=== PATIENT | male | born 1985 | race Hispanic/Latino ===

== ENCOUNTER 2024-10-06 18:49 | Emergency (ER) | payer SELFPAY ==
[2024-10-06 18:59] VITALS: BP 130/73
[2024-10-06 19:12] LABS: Glucose - Point of Care 347 mg/dl (70-99)
[2024-10-06 19:25] LABS: % Basophils 0.5 % (0-2); % Immature Granulocytes 0.5 % (0-0.5); % Lymphocytes 28.5 % (20.5-51.1); % Neutrophils 58.5 % (42.2-75.2); Absolute Eosinophils 0.1 10^3/uL (0-0.7); Absolute Lymphocytes 1.7 10^3/uL (1.2-3.4); Absolute Monocytes 0.6 10^3/uL (0.1-0.6); Absolute Neutrophils 3.5 10^3/uL (1.4-6.5); Hematocrit 40.6 % (39.0-52.0); Hemoglobin 14.3 g/dL (13.0-18.0); Mean Corp Hgb Conc. 35.2 g/dL (33.0-37.0); Mean Corpuscular Hgb 31.4 pg (27.0-31.0); Mean Corpuscular Volume 89.2 fL (80.0-94.0); Mean Platelet Volume 9.8 fL (7.4-10.4); Nucleated Red Blood Cells % 0 % (-); Platelet Count 226 10^3/uL (130-400); Red Blood Cell Count 4.55 10^6/uL (4.70-6.10); Red Cell Dist. Width 12.4 % (11.5-14.5)
[2024-10-06 19:45] LABS: ALT (SGPT) 128 U/L (0-50); AST (SGOT) 67 U/L (17-59); Albumin 4.4 g/dl (3.5-5.0); Alkaline Phosphatase 80 U/L (38-126); Blood Urea Nitrogen 16 mg/dl (9-20); Calcium 8.8 mg/dl (8.4-10.2); Carbon Dioxide 25 mmol/L (22-30); Chloride 101 mmol/L (98-107); Glucose 357 mg/dl (70-99); Potassium 4.3 mmol/L (3.5-5.1); Sodium 139 mmol/L (135-145); Total Bilirubin 0.6 mg/dl (0.2-1.3); Total Protein 7.1 g/dl (6.3-8.2); eGFR > 60.00
[2024-10-06 19:46] LABS: Lipase 192 U/L (23-300)
[2024-10-06 19:52] LABS: B-Hydroxybutyrate 0.12 mmol/L (0.02-0.27)
[2024-10-06 20:31] VITALS: BP 123/69
[2024-10-06 21:00] VITALS: BP 118/67
--- NOTE | 2024-10-06 21:06 | ED.GENMED ---
History of Present Illness
General
Chief Complaint: Blood Sugar Problem
Time Seen by Provider: 10/06/24 21:06
History of Present Illness
History of Present Illness:
TIME OF INITIAL ENCOUNTER: 9:10 PM
HPI: Patient states that he has had high blood sugars including sugars as high as 500s when he checked his blood sugar at home several months ago. He states he does have a glucometer at home but rarely uses it. He is not taking any medication for
diabetes. More recently he has had some vision changes and some paresthesias to the distal extremities as well as some discomfort in the back of the head. He suspects that his blood sugar is high.
EXAM:
GENERAL: Well appearing in no distress
HEENT: Moist oral mucosa
CARDIOVASCULAR: No murmurs, normal heart rate, regular rhythm, No chest wall tenderness
PULMONARY: No respiratory distress, breath sounds are clear and equal
ABDOMEN: Soft with no peritoneal signs, no tenderness
NEUROLOGIC: Excellent strength all extremities, no coordination deficits
PSYCHIATRIC: Appropriate mental status, normal insight and judgement
EXTREMITIES: Nontender, no edema, moves all extremities equally
SKIN: No rash, no lesions
NUMBER AND COMPLEXITY OF PROBLEMS ADDRESSED AT THE ENCOUNTER
� Chronic conditions affecting care: Questionable history of diabetes
� Acute Exacerbation and/or Progression of Chronic Illness: This is an acute problem
� Differential Diagnosis includes: Diabetes, DKA, hyperglycemia, electrolyte abnormality
AMOUNT AND/OR COMPLEXITY OF DATA TO BE REVIEWED AND ANALYZED
� I performed an independent evaluation of and my interpretation is:
EKG:
CT:
X-rays:
Laboratory Studies: CBC unremarkable, glucose 357, bedside glucose initially was 347, acetone 0.12, bicarb normal, chemistries otherwise unremarkable
Other:
� Review of other/old records: No old records available for review in [facility]
� Clinical information was obtained by an independent historian: I spoke to family member at bedside
� Prescriptions/Medications Considered but not given:
� Further testing considered but not performed: No indication for any imaging
RISK OF COMPLICATIONS AND/OR MORBIDITY OR MORTALITY OF PATIENT MANAGEMENT
� Social determinants of health affecting care: The patient does not have insurance states he does have a glucometer at home but does not use it
� Discussion with other providers:
� Escalation of care including admission/observation vs risk of discharge considered: The patient is not in DKA and is very well-appearing with relatively unremarkable vital signs. However blood sugar is markedly elevated
consistent with diabetes. We are giving IV fluids then insulin and will start metformin and he is to follow-up with me as outpatient. I am given him the contact information for family practice and [facility]
ANY OTHER UPDATES:
10:55 PM on reassessment, blood sugar now down to 176 after liter of fluid and 6 units of insulin. Will start on metformin. Very well-appearing on reassessment.
Phy Exam
Physical Exam
Physical Exam:
See HPI
Course
Orders/Labs/Results
Orders:
Orders
10/06/24 19:12
Alcohol Urgent
B-Hydroxybutyrate Urgent
Complete Blood Count/With Diff Urgent
Comprehensive Metabolic Panel Urgent
Lipase Urgent
10/06/24 21:07
Add On- LAB Urgent
Tests Added?: a1c
10/06/24 21:08
0.9% Sodium Chloride 1000 ml [Nss] 1,000 ml IV BOLUS
10/06/24 21:21
Insulin Human Regular [Novolin R] 6 units IV NOW STA
10/06/24 22:39
Bedside Glucose- Treatment ONCE
Abnormal Lab Results
10/06/24 10/06/24 10/06/24
19:11 19:12 22:48
RBC 4.55 L 10^6/uL
(4.70-6.10)
MCH 31.4 H pg
(27.0-31.0)
Monocytes % 10.0 H %
(1.7-9.3)
Glucose 357 H mg/dl
(70-99)
AST 67 H U/L
(17-59)
ALT 128 H U/L
(0-50)
POC Glucose 347 H mg/dl 176 H mg/dl
(70-99) (70-99)
10/06/24 19:12
10/06/24 19:12
Vital Signs
Initial and Last Documented VS:
Initial Vital Signs
Temp Pulse Resp BP Pulse Ox
36.8 C 71 18 130/73 97
10/06/24 18:59 10/06/24 18:59 10/06/24 18:59 10/06/24 18:59 10/06/24 18:59
Last Documented Vital Signs
Temp Pulse Resp BP Pulse Ox
36.8 C 64 28 100/54 94
10/06/24 18:59 10/06/24 22:45 10/06/24 22:45 10/06/24 22:00 10/06/24 22:30
*Critical Care Note
Total Time (30-74mins, 75-104mins- exclusive of procedures): Not Applicable
ED Attending Note
-
Portions of this chart may have been created with voice recognition software.� Occasional wrong word or��sound alike� substitutions may have occurred due to the inherent limitations of voice recognition software.
Discharge Plan
Departure
Patient Disposition: Home (Routine Discharge)
Date of Disposition: 10/06/24
Time of Disposition: 22:56
Patient with high blood pressure during this ER visit?: Yes
Discharge Problem:
Diabetes
Instructions: The ABCs of diabetes, Diabetes and diet
Prescriptions:
New
metformin 500 mg tablet
500 mg PO BID Qty: 60 0RF
Referrals:
[facility] [Provider Group] - Next open appointment
[facility] [Outside] - Next open appointment
Activity Restrictions/Additional Instructions:
I have given the contact information for the [facility] as well as the family residency program�I am hoping that 1 of these offices can see you for follow-up. I am starting you on metformin which should help control the blood sugars
initially. Return here if worse or other concerns. You should check your blood sugars before each meal and in the evenings and write these numbers down.
Interventions
Interventions:
*Risk Screen - Suicide Last Done: 10/06/24 20:33
*General Assessment Last Done: 10/06/24 20:33
*Neglect/Abuse Screening Last Done: 10/06/24 20:33
*ED COVID-19 Vaccine History Last Done: 10/06/24 20:33
ED- Neurological Assessment Last Done: 10/06/24 20:33
Discharge Date and Time
Print Language: BHUTANESE
[2024-10-06] MEDS: NSS 1000 IV (21:16)
[2024-10-06] MEDS: NOVOLIN R 6 UNITS IV (21:34)
[2024-10-06 21:45] LABS: Alcohol None Detected
[2024-10-06 22:00] VITALS: BP 100/54
[2024-10-06 22:49] LABS: Glucose - Point of Care 176 mg/dl (70-99)
[2024-10-06 23:00] VITALS: BP 96/49
[2024-10-07 00:04] VITALS: BP 119/56
[2024-10-07 00:17] LABS: Glucose - Point of Care 180 mg/dl (70-99)
== END 2024-10-07 00:10 | disposition home or self-care (01) ==
LOC: EMR 18:49
PROVIDERS: Emergency Medicine; EMERGENCY PHYSICIAN Emergency Medicine
DX: E11.65 Type 2 diabetes mellitus with hyperglycemia (principal); Z59.71 Insufficient health insurance coverage
CPT/HCPCS: 96374; 99284; 80053; 82010; 82077; 82962; 83690; 85025

== ENCOUNTER 2024-11-08 01:36 | Inpatient (IN) | payer OTHER, SELFPAY ==
[2024-11-07 22:19] VITALS: BP 130/88
[2024-11-07 22:58] LABS: % Basophils 0.6 % (0-2); % Eosinophils 1.1 % (0-6); % Monocytes 7.6 % (1.7-9.3); % Neutrophils 61.7 % (42.2-75.2); Absolute Eosinophils 0.1 10^3/uL (0-0.7); Absolute Immature Granulocytes 0.1 10^3/uL (0-0.05); Absolute Lymphocytes 1.8 10^3/uL (1.2-3.4); Absolute Monocytes 0.5 10^3/uL (0.1-0.6); Absolute Neutrophils 3.9 10^3/uL (1.4-6.5); Hematocrit 45.8 % (39.0-52.0); Hemoglobin 16.4 g/dL (13.0-18.0); Mean Corp Hgb Conc. 35.8 g/dL (33.0-37.0); Mean Corpuscular Hgb 32.1 pg (27.0-31.0); Mean Corpuscular Volume 89.6 fL (80.0-94.0); Mean Platelet Volume 10.5 fL (7.4-10.4); Nucleated Red Blood Cells % 0 % (-); Platelet Count 227 10^3/uL (130-400); Red Blood Cell Count 5.11 10^6/uL (4.70-6.10); Red Cell Dist. Width 12.3 % (11.5-14.5); White Blood Cell Count 6.3 10^3/uL (4.8-10.8)
[2024-11-07 23:18] LABS: ALT (SGPT) 49 U/L (0-50); AST (SGOT) 25 U/L (17-59); Albumin 5.3 g/dl (3.5-5.0); Alkaline Phosphatase 130 U/L (38-126); Blood Urea Nitrogen 13 mg/dl (9-20); Calcium 9.3 mg/dl (8.4-10.2); Carbon Dioxide 13 mmol/L (22-30); Chloride 100 mmol/L (98-107); Glucose 387 mg/dl (70-99); Potassium 4.9 mmol/L (3.5-5.1); Sodium 136 mmol/L (135-145); Total Bilirubin 0.9 mg/dl (0.2-1.3); Total Protein 8.6 g/dl (6.3-8.2); eGFR > 60.00
[2024-11-07 23:34] LABS: B-Hydroxybutyrate 6.66 mmol/L (0.02-0.27)
[2024-11-08] VITALS (19 sets, daily range): BP systolic 97–137; BP diastolic 58–89; BMI 34.9; BMI 33.8
[2024-11-08] MEDS: NSS 1000 IV (00:39)
--- NOTE | 2024-11-08 00:41 | ED.GENMED ---
History of Present Illness
General
Chief Complaint: Blood Sugar Problem
Source: patient
Exam Limitations: none
Time Seen by Provider: 11/08/24 00:19
Nursing documentation reviewed up to this point in time: agreed with
History of Present Illness
History of Present Illness:
Patient is a 39-year-old man with a past medical history of edc-vpptthl-cgrksqoqn diabetes. Patient reports he was diagnosed with diabetes about 8 months ago. Patient was prescribed metformin, however, he states he has not taken it in about 20
days because he does not like the way it makes him feel. Patient reports he was trying to control his sugar by controlling what he is eating. Patient reports that for the last few days, his sugars been above 400. He complains of feeling
dehydrated with a dry mouth and mild headache. He denies fever, chest pain, shortness of breath, and abdominal pain.
Past History
Past History
ED Past Medical History: NIDDM
ED Past Surgical History: Other
Social History
Tobacco: Non-smoker
Alcohol: Occasional
Drug: None
Personal:
Living: with family
Employment: Other
Family History
Family History: Other
Review of Systems
Review of Systems
Allergies reviewed?: Yes
All Other Systems: ROS reviewed and negative except as documented in HPI and ROS
Constitutional: Reports no symptoms
EENT: Reports other (Very dry mouth)
Respiratory: Reports no symptoms
Cardiac: Reports no symptoms
ABD/GI: Reports no symptoms
: Reports no symptoms
Musculoskeletal: Reports no symptoms
Skin: Reports no symptoms
Neurological: Reports headache
Endocrine: Reports no symptoms
Hematologic/Lymphatic: Reports no symptoms
Psychiatric: Reports no symptoms
Phy Exam
Physical Exam
Physical Exam:
Physical Exam
General: no apparent distress, not acutely ill
Neck: supple. Dry mucous membrane
Heart: s1/s2 regular rate and rhythm, no murmur. equal radial pulses.
Lungs: no acute respiratory distress. clear bilaterally
Abdomen: normal bowel sounds. not tender. no CVAT
Neuro: alert and oriented. no focal neurological deficits
Skin: no rash
Psychiatric: well kept. interactive and cooperative
Extremities: no edema. no calf tenderness. negative homans. good distal pulses
Course
Orders/Labs/Results
Orders:
Orders
11/07/24 22:34
B-Hydroxybutyrate Urgent
Complete Blood Count/With Diff Urgent
Comprehensive Metabolic Panel Urgent
11/08/24 00:34
0.9% Sodium Chloride 1000 ml [Nss] 1,000 ml IV BOLUS
11/08/24 00:45
Reg Insulin 100 Units/100 ml [Novolin R Insulin Infusion] 100 units in 100 ml IV ORDERED RATE
Abnormal Lab Results
11/07/24
22:34
MCH 32.1 H pg
(27.0-31.0)
MPV 10.5 H fL
(7.4-10.4)
Abs Immat Gran (auto) 0.1 H 10^3/uL
(0-0.05)
Immature Gran % 1.0 H %
(0-0.5)
Carbon Dioxide 13 L* mmol/L
(22-30)
Glucose 387 H mg/dl
(70-99)
Alkaline Phosphatase 130 H U/L
(38-126)
Total Protein 8.6 H g/dl
(6.3-8.2)
Albumin 5.3 H g/dl
(3.5-5.0)
B-Hydroxybutyrate 6.66 H mmol/L
(0.02-0.27)
11/07/24 22:34
11/07/24 22:34
Vital Signs
Initial and Last Documented VS:
Initial Vital Signs
Temp Pulse Resp BP Pulse Ox
98.1 F 80 18 130/88 96
11/07/24 22:19 11/07/24 22:19 11/07/24 22:19 11/07/24 22:19 11/07/24 22:19
Last Documented Vital Signs
Temp Pulse Resp BP Pulse Ox
98.9 F 88 18 130/88 97
11/08/24 00:31 11/08/24 00:31 11/08/24 00:31 11/07/24 22:19 11/08/24 00:31
MDM/Problems Addressed
Differential Diagnosis Includes:
DKA, hyperglycemia without DKA, hyponatremia
MDM/Problems Addressed:
Patient presents with complaints of hyperglycemia and feelings of acute dehydration
Chronic conditions affecting care: DM
Acute Exacerbation and/or Progression of Chronic Illness: DM
*Pulse Oximetry
Patient hypoxic: no
*EKG
Interpreted by ED Provider?: NA
*Program Director/Air Personality Interpretation
Rate: normal
Interpretation: normal
Rhythm: sinus
*Critical Care Note
Total Time (30-74mins, 75-104mins- exclusive of procedures): 35 minutes of critical ca
comment:
30 minutes of critical care with the patient including frequent reassessments of his heart rate, reviewing his blood work, and counseling him about the importance of taking his medication for his diabetes
Data Reviewed
Review of Other/Old Records Reveals: Labs (Lab from 10/06/2024 showed blood glucose in the 350s)
Source: patient and spouse
Patient Management
Social determinants of health affecting care: Living situation and Strong social support
ED Attending Note
-
Portions of this chart may have been created with voice recognition software.� Occasional wrong word or��sound alike� substitutions may have occurred due to the inherent limitations of voice recognition software.
Discharge Plan
Departure
Patient Disposition: Admit
Date of Disposition: 11/08/24
Time of Disposition: 00:43
Presentation/result/management discussed w/ accepting MD/DO: Hospitalist
Patient with high blood pressure during this ER visit?: Yes
Condition: Fair
Discharge Problem:
Diabetic ketoacidosis
Prescriptions:
No Action
No Current Medications
0
Referrals:
NONE,* [Family Provider] -
Interventions
Interventions:
*Risk Screen - Suicide Last Done: 11/08/24 00:32
*Neglect/Abuse Screening Last Done: 11/08/24 00:32
ED- Fall Risk Assessment Last Done: 11/08/24 00:32
*ED COVID-19 Vaccine History Last Done: 11/08/24 00:32
Discharge Date and Time
Print Language: AMERICAN
--- NOTE | 2024-11-08 01:24 | HPS.HSE ---
Family Physician
-
Family Physician: * NONE
Chief Complaint
-
Elevated blood glucose
History of Present Illness
Patient is a 39-year-old male with past medical history of a recent diagnosis of diabetes who comes to the emergency department with elevated glucose, polyuria polydipsia nausea and vomiting.
Patient was diagnosed about 8 months ago and placed himself on diet to help control his diabetes. He was seen in the ED for elevated blood glucose about a month ago. At that time patient was started on metformin. He said he took the metformin for
a few days but developed chest discomfort nausea and shortness of breath. He decided to stop taking the metformin about 3 weeks ago.
He now has polyuria polydipsia again. He reports nausea vomiting today. He denies having any fevers or chills. He denies any other urinary symptoms. He denies abdominal pain.
In the emergency department he was afebrile hemodynamically stable. CBC was unremarkable. Chemistries notable for a bicarb of 13, anion gap of 23, BUN and creatinine. Beta-hydroxybutyrate was elevated at 6.6. Blood glucose was 387.
Medical History
Past Medical History
Past Medical History: Reports NIDDM
Past Surgical History: Reports None
Social History
Tobacco: Non-smoker
Alcohol: Occasional
Drug: None
Personal:
Living: With Family
Employment: Employed
Family History
Family History: Not pertinent
Allergies / Home Medications
Allergies reflects when Allergies were last updated in [employer].
Home Medications with original date entered in [employer]
Allergy/Medication List:
Allergies
Allergy/AdvReac Type Severity Reaction Status Date / Time
No Known Allergies Allergy Unverified 10/06/24 19:01
Home Medications
No Meds [No Current Medications] 11/08/24
Review of Systems
-
History Source: Patient
Constitutional: Reports No Symptoms
EENT: Reports No Symptoms
Respiratory: Reports No Symptoms
Cardiac: Reports No Symptoms
Abdomen/GI: Reports Nausea and Vomiting
Musculoskeletal: Reports No Symptoms
Skin: Reports No Symptoms
Neurological: Reports No Symptoms
Endocrine: Reports Polyuria and Polydipsia
Hematologic/Lymphatic: Reports No Symptoms
Psych: Reports No Symptoms
Physical Exam
Vital Signs
Vital Signs
Temp Pulse Resp BP Pulse Ox
98.9 F 88 18 130/88 97
11/08/24 00:31 11/08/24 00:31 11/08/24 00:31 11/07/24 22:19 11/08/24 00:31
Physical Exam
General: No Apparent Distress
HEENT: NormoCephalic, Anicteric, Atraumatic and PERRLA
Respiratory: Clear
Cardiac: S1/S2 and Regular Rhythm
Breast: Deferred by me
GI: Soft, Non Tender, Non Distended and Normal Bowel Sounds
Rectal: Deferred by Provider
Genito-urinary: Deferred by me
Musculoskeletal: No Clubbing, No Cyanosis and No Edema
Neuro: AO x 3
Hematologic/Lymphatic: No Lymphadenopathy
Psych: Calm
Laboratory Results
-
11/07/24 22:34
11/07/24 22:34
Laboratory Results
Total Bilirubin 0.9 mg/dl (0.2-1.3) 11/07/24 22:34
AST 25 U/L (17-59) 11/07/24 22:34
ALT 49 U/L (0-50) 11/07/24 22:34
Alkaline Phosphatase 130 U/L (38-126) H 11/07/24 22:34
Data Reviewed
-
Lab Data: Labs Reviewed by me
Old Records: Reviewed
Impression/Plan
-
IMPRESSION:
This is a 39-year-old with diagnosis of mpo-kmzmwmd-rbwtndata diabetes recently who comes in in DKA. This is secondary to not being on any medications for 3 weeks after being started on metformin with subsequent nausea, chest pain and shortness of
breath. He appears moderately dehydrated and in moderate DKA. No signs of DKA triggered by infection or acute ischemia.
PLAN:
DKA -
- admit to icu
- aggressive hydration, 1 L NS bolus in ED
- DKA protocol started with appropriate fluids and insulin gtt rate
- FSG q 1 hour, chemistries q 4 hours
- antiemetics and pain control
- a1c in am
- no insurance and intolerant of metformin. Consider glimepiride with a gliptin if possible when ready to d/c
- diet can start in am if no vomiting
DVT PPX - lovenox
Code status - full code
--- NOTE | 2024-11-08 01:40 | EDRN ---
Pt says his blood sugar is high. Pt says it was 453 yesterday around [id number]. Pt says he has been diabetic for 8 months. Pt was put on oral medications for diabetes and says he stopped taking them after 20 days because he could not breathe. Pt
talked to the pharmacist who reportedly told the pt they would have to call the doctor. This was 15 days ago and pt did not hear back from pharmacy. Pt did not call doctor or pharmacy to inquire about the medications he stopped taking. Pt noted
his mouth was dry yesterday and he did not feel good which prompted visit to ED. No n/v, cp, sob, urinary symptoms, diarrhea/constipation. Pt notes abd pain. Pt's main complaint is dry mouth.
--- NOTE | 2024-11-08 01:52 | EDRN ---
Report called to Primitivo in ICU
--- NOTE | 2024-11-08 01:53 | EDRN ---
ICU has insulin drip, will start in ICU.
[2024-11-08] MEDS: NOVOLIN R INSULIN INFUSION 100 IV (02:36)
[2024-11-08 02:51] LABS: Glucose - Point of Care 318 mg/dl (70-99)
[2024-11-08] MEDS: NSS with KCL 20 MEQ 1000 IV (03:18)
[2024-11-08 03:28] LABS: Glucose - Point of Care 278 mg/dl (70-99)
[2024-11-08 03:32] LABS: Hematocrit 40.3 % (39.0-52.0); Hemoglobin 14.7 g/dL (13.0-18.0); Mean Corp Hgb Conc. 36.5 g/dL (33.0-37.0); Mean Corpuscular Hgb 32.2 pg (27.0-31.0); Mean Corpuscular Volume 88.4 fL (80.0-94.0); Mean Platelet Volume 10.3 fL (7.4-10.4); Platelet Count 208 10^3/uL (130-400); Red Blood Cell Count 4.56 10^6/uL (4.70-6.10); Red Cell Dist. Width 12.3 % (11.5-14.5); White Blood Cell Count 5.7 10^3/uL (4.8-10.8)
--- NOTE | 2024-11-08 04:01 | PTCARENOTE ---
Pt admit to ICU from ED around 214. Pt belongings with pt. Pt oriented to unit and hospital. at bedside - she is solely ethiopian speaking. Pt AAOx4, ambulatory. Lungs clear b/l. Pulses palpable. RA SpO2 96%. Pt speaks cambodian but ethiopian is
primary language. Labs drawn, insulin gtt and fluids initiated. IV placed.
[2024-11-08 04:13] LABS: Blood Urea Nitrogen 10 mg/dl (9-20); Calcium 8.4 mg/dl (8.4-10.2); Carbon Dioxide 8 mmol/L (22-30); Chloride 107 mmol/L (98-107); Estimated Creatinine Clearance > 125 ml/min; Glucose 283 mg/dl (70-99); Potassium 3.6 mmol/L (3.5-5.1); Sodium 137 mmol/L (135-145); eGFR > 60.00
[2024-11-08 04:17] LABS: Glucose - Point of Care 235 mg/dl (70-99)
[2024-11-08] MEDS: D5/0.45%NSS with KCL 20 MEQ 1000 IV ×3 (04:35→17:33)
[2024-11-08 05:26] LABS: Glucose - Point of Care 222 mg/dl (70-99)
[2024-11-08 06:17] LABS: Glucose - Point of Care 218 mg/dl (70-99)
[2024-11-08 07:13] LABS: Glucose - Point of Care 216 mg/dl (70-99)
--- NOTE | 2024-11-08 07:18 | W.PN.HOSP.TC ---
Today's Communication/Plan
-
Continue DKA protocol, BMP checks every 4 hours, accuchecks every 1 hour, IV fluids
Assessment / Plan
Assessment / Plan
Physical Exam
General: No Apparent Distress
HEENT: Normocephalic
Respiratory: Clear to Auscultation Bilaterally
Cardiac: S1/S2 and Regular Rhythm
GI: Soft, Non Tender, Non Distended and Normal Bowel Sounds
Musculoskeletal: No Cyanosis and No Edema
Neuro: AAO x 3
Psych: Calm
Assessment/Plan
39-year-old male with a diagnosis of ubx-cgnwdzs-jlbcecmai diabetes mellitus recently who comes in in DKA. This is secondary to not being on any medications for 3 weeks after being started on metformin with subsequent nausea, chest pain and
shortness of breath. He appeared moderately dehydrated and in moderate DKA. No signs of DKA triggered by infection or acute ischemia.
Diabetic Ketoacidosis
Diabetes diagnosis 8 months ago-not treated
- Admitted to ICU
- aggressive hydration, 1 L NS bolus in ED
- Continue DKA protocol started with appropriate fluids and insulin gtt rate
- Glucose accuchecks Q1 hour, BMP q 4 hours
- antiemetics and pain control
- A1c is 10.8%
- no insurance and intolerant of metformin. Consider glimepiride with a gliptin if possible when ready to d/c
- Once blood sugar under 250 transition to D5 and a half with potassium
- Advance to diabetic, carb-controlled diet when nausea resolves and anion gap closes
- Monitor electrolytes and replete as necessary
- Will need Diabetes Nurse Practitioner evaluation
DVT Prophylaxis: Lovenox
Code Status: Full Code
Anticipated Discharge: > 48 hours
Subjective/Interval History
-
Date of Service: November 08, 2024
Patient was seen and examined. He denied any chest pain, dizziness or any other complaints.
Objective Data
-
Labs:
Laboratory Results
11/07/24 11/08/24 11/08/24
22:34 03:14 08:00
WBC 6.3 5.7
Hgb 16.4 14.7
Hct 45.8 40.3
Plt Count 227 208
Sodium 136 137 Pending
Potassium 4.9 3.6 D Pending
Chloride 100 107 Pending
Carbon Dioxide 13 L* 8 L* Pending
BUN 13 10 Pending
Creatinine 0.7 0.5 L Pending
Glucose 387 H 283 H Pending
Calcium 9.3 8.4 Pending
Total Bilirubin 0.9
AST 25
ALT 49
Alkaline Phosphatase 130 H
11/08/24 11/08/24 11/08/24
12:00 16:00 20:00
WBC
Hgb
Hct
Plt Count
Sodium Pending Pending Pending
Potassium Pending Pending Pending
Chloride Pending Pending Pending
Carbon Dioxide Pending Pending Pending
BUN Pending Pending Pending
Creatinine Pending Pending Pending
Glucose Pending Pending Pending
Calcium Pending Pending Pending
Total Bilirubin
AST
ALT
Alkaline Phosphatase
Vital Signs:
Vital Signs
Temp Pulse Resp BP Pulse Ox
98.1 F 85 17 119/83 94
11/08/24 04:00 11/08/24 06:00 11/08/24 06:00 11/08/24 06:00 11/08/24 06:00
I&O
11/07/24 11/08/24 11/09/24
06:59 06:59 06:59
Intake Total 815 / 815
Balance 815 / 815
[2024-11-08 08:10] LABS: Glucose - Point of Care 222 mg/dl (70-99)
--- NOTE | 2024-11-08 08:15 | PTCARENOTE ---
0700 assumed care. pt in bed. Insulin infusing per DKA protocol : Insulin at 3unit or 3ml /hr +D5 0.45NSS infusing
AAO x3 able to communicate without manager animal at this time
SR 90's BP 116/73 MAP 87 RR 26 S1/S2
lungs clear on RA
Abdomen soft non tenders bs present denies nausea no vomitine
Voiding in a bathroom
skin intact . peripheral lines RT and left
[2024-11-08 08:58] LABS: Blood Urea Nitrogen 9 mg/dl (9-20); Calcium 8.1 mg/dl (8.4-10.2); Carbon Dioxide 13 mmol/L (22-30); Chloride 110 mmol/L (98-107); Estimated Creatinine Clearance > 125 ml/min; Glucose 224 mg/dl (70-99); Potassium 3.7 mmol/L (3.5-5.1); Sodium 138 mmol/L (135-145); eGFR > 60.00
[2024-11-08 09:14] LABS: Glucose - Point of Care 221 mg/dl (70-99)
[2024-11-08 10:17] LABS: Glucose - Point of Care 207 mg/dl (70-99)
[2024-11-08 11:20] LABS: Glucose - Point of Care 208 mg/dl (70-99)
[2024-11-08 11:26] LABS: Glycohemoglobin (HgbA1c) 10.8 % (4.0-5.6)
--- NOTE | 2024-11-08 11:29 | CON.INTV ---
Consultation
Consultation Request
Date/Time Consultation Requested: 11/08/2024
Date/Time Consultation Performed: 11/08/2024
Requesting Provider: Dr. Ulloa
Performing Provider: Dr. Bk Cash
Reason for Consultation: DKA
Medical History
-
History of Present Illness:
39-year-old man with past medical history of recent diagnosis of diabetes came to the emergency department for elevated blood glucose, polyuria, polydipsia, nausea and vomiting.
Reports diagnosis of diabetes a month ago. Initially on metformin then on diet.
Stopped taking medications about 8 weeks ago
Found to be on diabetes ketoacidosis. Profound metabolic acidosis
Started on insulin drip and transferred to the critical care unit
Social History
Tobacco: Non-smoker
Alcohol: Occasional
Living: With Family
Employment: Employed
Family History
Family History: Reviewed & Not Pertinent
Allergies / Home Medications
Allergies
Allergy/AdvReac Type Severity Reaction Status Date / Time
No Known Allergies Allergy Unverified 10/06/24 19:01
Home Medications
�Medication �Instructions �Recorded �Confirmed �Last Taken �Type
No Meds [No Current Medications] 11/08/24 11/08/24 Unknown History
Review of Systems
-
History Source: Patient
All other systems: Negative unless noted
Vitals / Labs / Diagnostic Testing
Vital Signs
Temp Pulse Resp BP Pulse Ox
98.2 F 85 17 119/83 94
11/08/24 07:22 11/08/24 06:00 11/08/24 06:00 11/08/24 06:00 11/08/24 06:00
Lab Data
11/08/24 03:14
Diagnostic Testing:
Physical Exam
-
HEENT: Normocephalic
Cardiovascular: S1/S2
Respiratory: Clear and Non-Labored Respirations
GI: Soft and Non Distended
Neurology: Awake, Alert and No Motor Deficits
Skin: Warm
General: Comfortable
Assessment
-
39-year-old with diagnosis of diabetes a months ago, initially treated with metformin and diet. Stopped taking medication about a month and a half ago. Admitted with diabetes ketoacidosis
Diabetes ketoacidosis
Diabetes diagnosis 8 months ago-not treated
Assessment and plan:
Agree with insulin drip for DKA protocol-trigger for diabetes ketoacidosis noncompliance per
Frequent BMPs
IV fluid resuscitation
Once blood sugar under 250 transition to D5 and a half with potassium
Monitor electrolytes and replete as necessary
Diabetes nurse practitioner evaluation at some point, likely will need insulin
-
denies chest pain
Denies shortness of breath
Denies cough or phlegm production
Denies dysuria or back pain
-
Advance diet when nausea is resolved and anion gap closes
Low carbohydrate diet
-
DVT prophylaxis-Lovenox
-
Critical care statement: A total of 31 minutes of critical care time was provided for this patient today. This includes management of unstable vital signs, evaluation of the patient at bedside, reviewing the patient's pertinent medical records
including ventilator settings, arterial blood gases, radiographs, microbiology, laboratory evaluations and discussion with primary team, critical care nursing, and respiratory therapy.
--- NOTE | 2024-11-08 11:52 | PTCARENOTE ---
Assumed care of pt at 1130, report received. Pt speaks mostly South Sudanese, Dr Cash in to see pt and speaks [place] with him, Pt does speak some simple Burkinan, and use of language line in room. Pt awake and pleasant, HR SR, BP 104/78. Reg insulin
infusing at 3 units/hr, accu checks con't to be checked q1 hr. IVF D5 1/2 nss infusing at 150 m l/hr. Pt on R/A, 97% O2 sat, lobees clear. Pt presently able to take sips of water, pt not to start diet yet until anion gap closed as per Dr Cash.
Urinal at bedside. Vital signs downloaded from prior partial shift, [phone]. Call wright at pt's side.
[2024-11-08 12:16] LABS: Glucose - Point of Care 221 mg/dl (70-99)
[2024-11-08 12:43] LABS: Blood Urea Nitrogen 9 mg/dl (9-20); Calcium 8.2 mg/dl (8.4-10.2); Carbon Dioxide 16 mmol/L (22-30); Chloride 108 mmol/L (98-107); Estimated Creatinine Clearance > 125 ml/min; Glucose 213 mg/dl (70-99); Potassium 3.6 mmol/L (3.5-5.1); Sodium 137 mmol/L (135-145); eGFR > 60.00
[2024-11-08 13:18] LABS: Glucose - Point of Care 236 mg/dl (70-99)
[2024-11-08 14:26] LABS: Glucose - Point of Care 215 mg/dl (70-99)
--- NOTE | 2024-11-08 15:04 | CM ---
German/Polish speaking patient with Hx DM with Dx DKA. Room air. Receiving Insulin gtt. Per nurse; activity by self.
Spoke with patient who resides with his in brother in law's house.
The patient was independent in ADLs and ambulation.
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
DME - glucometer
No prior VN.
The patient has no PCP - he is aware of [facility].
Pharmacy - [facility]
The patient says his doesn't speak Polish.
Message to Dr Perry: patient may benefit from seeing certified breastfeeding educator while here. He has no insurance at present, and we don't know yet if he will qualify for Medicaid, therefore will not be able to see nurse for diabetic Education
follow-up. He has no PCP and will need to follow up at [facility].
Plan home.
[2024-11-08 15:23] LABS: Glucose - Point of Care 202 mg/dl (70-99)
[2024-11-08 16:25] LABS: Glucose - Point of Care > 600 mg/dl (70-99)
[2024-11-08 16:43] LABS: Blood Urea Nitrogen 8 mg/dl (9-20); Calcium 8.3 mg/dl (8.4-10.2); Carbon Dioxide 18 mmol/L (22-30); Chloride 107 mmol/L (98-107); Estimated Creatinine Clearance > 125 ml/min; Glucose 201 mg/dl (70-99); Potassium 3.6 mmol/L (3.5-5.1); Sodium 137 mmol/L (135-145); eGFR > 60.00
[2024-11-08] MEDS: LOVENOX 40 MG SC (17:34)
[2024-11-08 17:38] LABS: Glucose - Point of Care 217 mg/dl (70-99)
--- NOTE | 2024-11-08 17:43 | PTCARENOTE ---
Pt resting comfortably, family visiting in room. 1600 anion gap=16.6, will be rechecked at 1999. Reg insulin drip remains at 3 units/hr. VSS.
[2024-11-08 18:15] LABS: Glucose - Point of Care 206 mg/dl (70-99)
[2024-11-08 19:14] LABS: Glucose - Point of Care 191 mg/dl (70-99)
[2024-11-08 19:38] LABS: Glucose - Point of Care 206 mg/dl (70-99)
--- NOTE | 2024-11-08 20:00 | PTCARENOTE ---
rec'd pt resting in bed, denies pain, at bedside, SR, bp stable, + pulses, no edema, q1hr accu- see flow sheet for insulin titrations, RA, lungs decr in bases, sat 95, + bowel sounds, no bm, abd soft, voiding w/o difficulty in urinal
[2024-11-08 20:07] LABS: Glucose - Point of Care 197 mg/dl (70-99)
[2024-11-08 20:23] LABS: INR 1.03; PT 13.8 Sec (11.4-14.6)
[2024-11-08 20:24] LABS: APTT 40.1 Sec (23.4-35.0)
[2024-11-08 20:42] LABS: ALT (SGPT) 43 U/L (0-50); AST (SGOT) 28 U/L (17-59); Albumin 4.1 g/dl (3.5-5.0); Alkaline Phosphatase 76 U/L (38-126); Blood Urea Nitrogen 7 mg/dl (9-20); Calcium 8.4 mg/dl (8.4-10.2); Carbon Dioxide 17 mmol/L (22-30); Chloride 106 mmol/L (98-107); Estimated Creatinine Clearance > 125 ml/min; Glucose 206 mg/dl (70-99); Sodium 135 mmol/L (135-145); Total Bilirubin 0.8 mg/dl (0.2-1.3); Total Protein 6.6 g/dl (6.3-8.2); eGFR > 60.00
[2024-11-08 20:50] LABS: Potassium 3.7 mmol/L (3.5-5.1)
[2024-11-08 21:12] LABS: Glucose - Point of Care 197 mg/dl (70-99)
[2024-11-08 22:02] LABS: Glucose - Point of Care 202 mg/dl (70-99)
[2024-11-08 23:16] LABS: Glucose - Point of Care 194 mg/dl (70-99)
[2024-11-08 23:59] LABS: Glucose - Point of Care 208 mg/dl (70-99)
[2024-11-09] VITALS (14 sets, daily range): BP systolic 81–119; BP diastolic 45–95; BMI 34.2
--- NOTE | 2024-11-09 | PTCARENOTE ---
sys reviewed, changes noted
[2024-11-09 00:13] LABS: Blood Urea Nitrogen 7 mg/dl (9-20); Calcium 8.6 mg/dl (8.4-10.2); Carbon Dioxide 17 mmol/L (22-30); Chloride 107 mmol/L (98-107); Estimated Creatinine Clearance > 125 ml/min; Glucose 204 mg/dl (70-99); Potassium 3.6 mmol/L (3.5-5.1); Sodium 137 mmol/L (135-145); eGFR > 60.00
[2024-11-09] MEDS: D5/0.45%NSS with KCL 20 MEQ 1000 IV ×3 (00:46→14:00)
[2024-11-09 01:04] LABS: Glucose - Point of Care 180 mg/dl (70-99)
[2024-11-09] MEDS: NOVOLIN R INSULIN INFUSION 100 IV (01:15)
[2024-11-09 02:07] LABS: Glucose - Point of Care 186 mg/dl (70-99)
[2024-11-09 03:16] LABS: Glucose - Point of Care 180 mg/dl (70-99)
--- NOTE | 2024-11-09 04:00 | PTCARENOTE ---
assessment reviewed, changes noted
[2024-11-09 04:07] LABS: Glucose - Point of Care 196 mg/dl (70-99)
[2024-11-09 04:10] LABS: Hematocrit 37.2 % (39.0-52.0); Hemoglobin 13.4 g/dL (13.0-18.0); Mean Corpuscular Hgb 31.6 pg (27.0-31.0); Mean Corpuscular Volume 87.7 fL (80.0-94.0); Mean Platelet Volume 9.9 fL (7.4-10.4); Platelet Count 178 10^3/uL (130-400); Red Blood Cell Count 4.24 10^6/uL (4.70-6.10); Red Cell Dist. Width 12.5 % (11.5-14.5); White Blood Cell Count 4.8 10^3/uL (4.8-10.8)
[2024-11-09 04:31] LABS: Blood Urea Nitrogen 7 mg/dl (9-20); Calcium 8.3 mg/dl (8.4-10.2); Carbon Dioxide 18 mmol/L (22-30); Chloride 107 mmol/L (98-107); Estimated Creatinine Clearance > 125 ml/min; Glucose 203 mg/dl (70-99); Magnesium 1.7 mg/dl (1.6-2.3); Phosphorus 2.4 mg/dl (2.5-4.5); Potassium 3.4 mmol/L (3.5-5.1); Sodium 137 mmol/L (135-145); eGFR > 60.00
[2024-11-09 05:13] LABS: Glucose - Point of Care 205 mg/dl (70-99)
[2024-11-09] MEDS: KCL 270 MEQ IV (06:10)
--- NOTE | 2024-11-09 06:11 | PTCARENOTE ---
40 meq kcl/250 hung over 4 hr per order
[2024-11-09 06:13] LABS: Glucose - Point of Care 211 mg/dl (70-99)
[2024-11-09 07:05] LABS: Glucose - Point of Care 208 mg/dl (70-99)
--- NOTE | 2024-11-09 07:12 | W.PN.INTV ---
Today's Communication / Plan
Recommendations
Plan to transition to SQ insulin today, needs diabetic education as well
Otherwise stable, on room air
Can transfer to floors when transitioned off insulin gtt
Diet advancement
OOB to chair
We will sign off upon transfer
Assessment
-
39-year-old with diagnosis of diabetes a months ago, initially treated with metformin and diet. Stopped taking medication about a month and a half ago. Admitted with diabetes ketoacidosis
Diabetes ketoacidosis
Diabetes diagnosis 8 months ago-not treated
Noncompliance
Obesity BMI 34
Plan:
Agree with insulin drip for DKA protocol-trigger for diabetes ketoacidosis noncompliance
Lack of access/education
Frequent BMPs
IV fluid resuscitation
Once blood sugar under 250 transition to D5 and a half with potassium
Monitor electrolytes and replete as necessary
Diabetes nurse practitioner consult
Transition to SQ insulin hopefully today
Needs diet/management education
-
No other past history noted
Denies chest pain
Denies shortness of breath
Denies cough or phlegm production
Denies dysuria or back pain
-
Advance diet when nausea is resolved and anion gap closes
Low carbohydrate diet
-
DVT prophylaxis-Lovenox
Diagnostic Data
Chest X-Ray: 11/08/24- No active cardiopulmonary disease.
CT Scan:
Echo:
PFT's:
Reports and relevant images were personally reviewed.
Critical care statement: A total of 31 minutes of critical care time was provided for this patient today. This includes management of unstable vital signs, evaluation of the patient at bedside, reviewing the patient's pertinent medical records
including ventilator settings, arterial blood gases, radiographs, microbiology, laboratory evaluations and discussion with primary team, critical care nursing, and respiratory therapy.
Subjective Dataa
Subjective Data
Date of Service:
Date of Service: November 09, 2024
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
Subjective:
no acute events ON, remains on insulin gtt
no new complaints
stable on RA
Objective Data
Data Reviewed
Vital Signs / I&O / Oxygen:
Vital Signs
Temp Pulse Resp BP Pulse Ox
97.8 F 73 16 99/69 96
11/09/24 03:00 11/09/24 06:00 11/09/24 06:00 11/09/24 06:00 11/09/24 06:00
Intake and Output
11/08/24 11/09/24 11/10/24
06:59 06:59 06:59
Intake Total 815 / 815 3975 / 3975
Output Total 950 / 950
Balance 815 / 815 3025 / 3025
SaO2 96
Physical Exam
General: Comfortable and Other (NAD)
HEENT: Normocephalic, Anicteric and Moist Mucous Membranes
Cardiovascular: S1-S2 and Regular Rhythm
Respiratory: Clear and Non-Labored Respirations
GI: Soft, Non Distended and Non Tender
Neurology: Awake, Alert, Oriented and No Motor Deficits
Skin: Warm, Dry and Good Color
Labs/Micro/Reports
Lab Data
11/09/24 03:56
11/09/24 03:56
Laboratory Results
11/08/24
19:57
PT 13.8
INR 1.03
APTT 40.1 H
--- NOTE | 2024-11-09 07:24 | PN.DE.MGMTRT ---
Insulin Management
- -
11/09/2024 Diabetes management Consult
Patient admitted 11/08 with DKA. PMH type 2 diabetes for 8 months. He was seen in the ED 10/07 for elevated glucose and was prescribed metformin. A1C on admission 10.8, cr .4, eGFR > 60. GAP 12.
Will follow until GAP is closed. Will ask ANTHONY Richardson, [facility] to see patient for education.
Diabetes History
- -
Type of Diabetes: 2
Pre-Admission Diabetes Regimen
11/08/24 11/08/24 11/08/24
08:13 12:19 16:09
Creatinine 0.4 L 0.4 L 0.4 L
11/08/24 11/08/24 11/09/24
19:57 23:49 00:00
Creatinine 0.5 L 0.4 L Cancelled
11/09/24
03:56
Creatinine 0.4 L
Lab Results
Hemoglobin A1c 10.8 % (4.0-5.6) H 11/08/24 03:14
Insulin Pump Settings
IP Diabetes Regimen
11/08/24 11/08/24 11/08/24
07:59 08:13 09:03
Glucose 224 H
POC Glucose 222 H 221 H
11/08/24 11/08/24 11/08/24
10:05 11:06 12:05
Glucose
POC Glucose 207 H 208 H 221 H
11/08/24 11/08/24 11/08/24
12:19 13:06 14:14
Glucose 213 H
POC Glucose 236 H 215 H
11/08/24 11/08/24 11/08/24
15:11 16:09 16:11
Glucose 201 H
POC Glucose 202 H > 600 H*
11/08/24 11/08/24 11/08/24
17:27 18:04 19:02
Glucose
POC Glucose 217 H 206 H 191 H
11/08/24 11/08/24 11/08/24
19:27 19:56 19:57
Glucose 206 H
POC Glucose 206 H 197 H
11/08/24 11/08/24 11/08/24
21:01 21:50 23:04
Glucose
POC Glucose 197 H 202 H 194 H
11/08/24 11/08/24 11/09/24
23:48 23:49 00:00
Glucose 204 H Cancelled
POC Glucose 208 H
11/09/24 11/09/24 11/09/24
00:52 01:54 03:04
Glucose
POC Glucose 180 H 186 H 180 H
11/09/24 11/09/24 11/09/24
03:55 03:56 05:02
Glucose 203 H
POC Glucose 196 H 205 H
11/09/24 11/09/24
06:02 06:53
Glucose
POC Glucose 211 H 208 H
Meal type: Dinner
Meal type: Lunch
Patient Education
[2024-11-09 07:30] LABS: Glucose - Point of Care 215 mg/dl (70-99)
[2024-11-09 08:00] LABS: Glucose - Point of Care 184 mg/dl (70-99)
--- NOTE | 2024-11-09 08:04 | PTCARENOTE ---
pt received from previous rn- aox4, able to make needs known. nsr on monitor, room air. no complaints at this time. ivf, k rider and insulin gtt continue as per order. plan of care discussed with patient and - verbalized understanding. all
safety precautions in place, call wright within reach.
[2024-11-09 09:02] LABS: Glucose - Point of Care 210 mg/dl (70-99)
--- NOTE | 2024-11-09 09:10 | W.PN.INTV ---
Today's Communication / Plan
Recommendations
-Continue to monitor CMP
Assessment
-
39-year-old male, full code was admitted for diabetic ketoacidosis currently on insulin drip and supportive measures.
Diabetic ketoacidosis:
-Continue IV fluids with 0.9% normal saline and switch to dextrose 5% when glucose is less than 200
-Continue to monitor blood glucose, today most recent level was 210
- switch to basal bolus subcutaneous insulin when the patient is able to eat, glucose is less than 200, and anion gap less than 12, bicarbonate more than 15
-Lantus 20, 7 AC, NPH 14 twice daily, 6 aspart
-Bicarb as needed if there is a pH less than 6.9
-Monitor serum phosphate and replete if less than 1, any cardiac dysfunction, any respiratory depression
-Monitor electrolytes
-For hypokalemia (3.4 today), continue to monitor and replete
-Continue to consult with diabetic nurse practitioner on further management
-Diet is clear liquid currently, orders have been put in for diabetic diet
-Continue to trend CMP
Subjective Dataa
Subjective Data
Date of Service:
Date of Service: November 09, 2024
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
Subjective:
Patient presented to the emergency department on 11/08/2024 with polyuria, polydipsia, vomiting, elevated blood glucose levels at home in the 400s. Had been diagnosed with diabetes around 9 months ago and was prescribed metformin however did not
take due to nausea and shortness of breath. On admission his EKG and chest x-ray were normal, beta hydroxybutyrate was elevated at 6.66, blood glucose was over 600, creatinine was 10.8 and anion gap was more than 12.
Currently on insulin drip IV fluids and iv potassium chloride
He denies fever, chest pain, shortness of breath and abdominal pain
Review of Systems
General: Fever (Negative), Sweats (Negative), Chills (Negative), Pain (Negative) and Elevated Blood Sugar
Cardiopulmonary: Dyspnea (Negative), Cough (Negative), Chest Pain (Negative) and Edema (Negative)
GI: Abdominal Pain (Negative), Nausea (Negative), Vomiting (Negative), Diarrhea (Negative) and Constipation (Negative)
Neuro: Headache (Negative), Dizziness (Negative), Weakness and Confused (Negative)
Objective Data
Data Reviewed
Vital Signs / I&O / Oxygen:
Vital Signs
Temp Pulse Resp BP Pulse Ox
97.9 F 67 20 111/70 96
11/09/24 07:00 11/09/24 08:00 11/09/24 08:00 11/09/24 08:00 11/09/24 08:00
Intake and Output
11/08/24 11/09/24 11/10/24
06:59 06:59 06:59
Intake Total 815 / 815 3975 / 4195.5 440.0 / 440.0
Output Total 950 / 950
Balance 815 / 815 3025 / 3245.5 440.0 / 440.0
SaO2 96
Physical Exam
General: Comfortable
Cardiovascular: S1-S2 and Regular Rhythm
Respiratory: Clear
GI: Soft, Non Distended, Non Tender and Normal Bowel Sounds
Neurology: Awake, Alert, Oriented and AO x 3
Skin: Warm and Dry
Labs/Micro/Reports
Lab Data
11/09/24 03:56
11/09/24 03:56
Laboratory Results
11/08/24
19:57
PT 13.8
INR 1.03
APTT 40.1 H
[2024-11-09 09:15] LABS: Glucose - Point of Care 184 mg/dl (70-99)
[2024-11-09 09:56] LABS: Glucose - Point of Care 211 mg/dl (70-99)
[2024-11-09 10:30] LABS: Blood Urea Nitrogen 7 mg/dl (9-20); Calcium 8.5 mg/dl (8.4-10.2); Carbon Dioxide 16 mmol/L (22-30); Chloride 109 mmol/L (98-107); Estimated Creatinine Clearance > 125 ml/min; Glucose 202 mg/dl (70-99); Potassium 3.8 mmol/L (3.5-5.1); Sodium 137 mmol/L (135-145); eGFR > 60.00
[2024-11-09 11:05] LABS: Glucose - Point of Care 183 mg/dl (70-99)
[2024-11-09 11:58] LABS: Glucose - Point of Care 200 mg/dl (70-99)
[2024-11-09 13:00] LABS: Glucose - Point of Care 217 mg/dl (70-99)
--- NOTE | 2024-11-09 13:24 | PTCARENOTE ---
insulin and ivf continue as per order. no changes in patient assessment, no complaints at this time. plan of care discussed with md in rounds
--- NOTE | 2024-11-09 13:50 | PN.DE.MGMTRT ---
Insulin Management
- -
11/09/2024 Diabetes management Consult
Patient admitted 11/08 with DKA. PMH type 2 diabetes for 8 months. He was seen in the ED 10/07 for elevated glucose and was prescribed metformin. A1C on admission 10.8, cr .4, eGFR > 60. GAP 12.
Patient is awake alert and oriented able to discuss diabetes care. States he has a Reli-On glucose monitor and strips at home.
Will transition from IV insulin to 6 units NPH now then 70/30 15 units BID first dose with dinner. Will check 3AM glucose.
Discussed with nurse. Nursing to start to familiarize patient with insulin pen. Patient states he is able to afford insulin, suggested [facility] as they have the best pricing.
Will follow.
Diabetes History
- -
Type of Diabetes: 2 requiring insulin
Pre-Admission Diabetes Regimen
11/08/24 11/08/24 11/08/24
16:09 19:57 23:49
Creatinine 0.4 L 0.5 L 0.4 L
11/09/24 11/09/24 11/09/24
00:00 03:56 09:43
Creatinine Cancelled 0.4 L 0.4 L
Lab Results
Hemoglobin A1c 10.8 % (4.0-5.6) H 11/08/24 03:14
Insulin Pump Settings
IP Diabetes Regimen
11/08/24 11/08/24 11/08/24
14:14 15:11 16:09
Glucose 201 H
POC Glucose 215 H 202 H
11/08/24 11/08/24 11/08/24
16:11 16:16 17:27
Glucose
POC Glucose > 600 H* 215 H 217 H
11/08/24 11/08/24 11/08/24
18:04 19:02 19:27
Glucose
POC Glucose 206 H 191 H 206 H
01/03/2811/08/24 11/08/24
19:56 19:57 21:01
Glucose 206 H
POC Glucose 197 H 197 H
11/08/24 11/08/24 11/08/24
21:50 23:04 23:48
Glucose
POC Glucose 202 H 194 H 208 H
11/08/24 11/09/24 11/09/24
23:49 00:00 00:52
Glucose 204 H Cancelled
POC Glucose 180 H
11/09/24 11/09/24 11/09/24
01:54 03:04 03:55
Glucose
POC Glucose 186 H 180 H 196 H
11/09/24 11/09/24 11/09/24
03:56 05:02 06:02
Glucose 203 H
POC Glucose 205 H 211 H
11/09/24 11/09/24 11/09/24
06:53 07:49 08:51
Glucose
POC Glucose 208 H 184 H 210 H
11/09/24 11/09/24 11/09/24
09:03 09:43 09:44
Glucose 202 H
POC Glucose 184 H 211 H
11/09/24 11/09/24 11/09/24
10:54 11:47 12:49
Glucose
POC Glucose 183 H 200 H 217 H
Meal type: Dinner
Patient Education
[2024-11-09 14:13] LABS: Glucose - Point of Care 192 mg/dl (70-99)
[2024-11-09] MEDS: NOVOLIN N vial 0.06 UNITS SC (14:23)
[2024-11-09 15:02] LABS: Glucose - Point of Care 203 mg/dl (70-99)
--- NOTE | 2024-11-09 16:12 | PTCARENOTE ---
insulin gtt and ivf off per order of Dr. Etsrada and Sondra Lubin personal development educator. pt ambulating in room without difficulty. updated on plan of care, verbalized understanding.
[2024-11-09] MEDS: NOVOLOG FLEXPEN-LOW RESISTANCE 1 UNITS SC (16:52)
[2024-11-09] MEDS: NOVOLOG MIX 70/30 FLEXPEN 15 UNITS SC (16:53)
[2024-11-09] MEDS: LOVENOX 40 MG SC (16:57)
[2024-11-09 17:01] LABS: Glucose - Point of Care 184 mg/dl (70-99)
--- NOTE | 2024-11-09 19:24 | W.PN.HOSP.TC ---
Today's Communication/Plan
-
Transfer to tele
Start subq Insulin
Diabetic Diet
Assessment / Plan
Assessment / Plan
Physical Exam
General: No Apparent Distress
HEENT: Normocephalic
Respiratory: Clear to Auscultation Bilaterally
Cardiac: S1/S2 and Regular Rhythm
GI: Soft, Non Tender, Non Distended and Normal Bowel Sounds
Musculoskeletal: No Cyanosis and No Edema
Neuro: AAO x 3
Psych: Calm
Assessment/Plan
39-year-old male with a diagnosis of akz-tflusur-qdbfotsti diabetes mellitus recently who comes in in DKA. This is secondary to not being on any medications for 3 weeks after being started on metformin with subsequent nausea, chest pain and
shortness of breath. He appeared moderately dehydrated and in moderate DKA. No signs of DKA triggered by infection or acute ischemia.
Diabetic Ketoacidosis
Diabetes diagnosis 8 months ago-not treated
- Admitted to ICU initially, now okay for transfer to telemetry
- Received DKA protocol. Now anion gap closed.
- Glucose accuchecks Q1 hour, BMP q 4 hours
- antiemetics and pain control
- A1c is 10.8%
- no insurance and intolerant of metformin. Consider glimepiride with a gliptin if possible when ready to d/c
- Subq Insulin
- Appreciate Diabetes CLIP ON SUNGLASSES ASSEMBLER as patient needs significant Diabetes Education
DVT Prophylaxis: Lovenox
Code Status: Full Code
Anticipated Discharge: Within 24 hours
Subjective/Interval History
-
Date of Service: November 09, 2024
Patient was seen and examined. He denied any symptoms or complaints.
Objective Data
-
Labs:
Laboratory Results
11/09/24
09:43
Sodium 137
Potassium 3.8
Chloride 109 H
Carbon Dioxide 16 L
BUN 7 L
Creatinine 0.4 L
Glucose 202 H
Calcium 8.5
Vital Signs:
Vital Signs
Temp Pulse Resp BP Pulse Ox
98.4 F 80 22 111/72 97
11/09/24 15:11 11/09/24 17:00 11/09/24 16:00 11/09/24 16:09 11/09/24 16:11
I&O
11/08/24 11/09/24 11/10/24
06:59 06:59 06:59
Intake Total 815 / 815 3975 / 4195.5 1573.5 / 1573.5
Output Total 950 / 950 600 / 600
Balance 815 / 815 3025 / 3245.5 973.5 / 973.5
--- NOTE | 2024-11-09 20:00 | PTCARENOTE ---
Rec'd pt sitting in rm, at side, amb in room ad ramy, no pain, bp stable, + pulses, RA, lungs clear, + bowel sounds, no bm, abd soft, zhao diet, voids in urinal w/o difficulty
[2024-11-09 21:43] LABS: Glucose - Point of Care 162 mg/dl (70-99)
[2024-11-10 03:15] LABS: Glucose - Point of Care 147 mg/dl (70-99)
[2024-11-10 03:43] LABS: Blood Urea Nitrogen 8 mg/dl (9-20); Calcium 8.5 mg/dl (8.4-10.2); Carbon Dioxide 20 mmol/L (22-30); Chloride 107 mmol/L (98-107); Estimated Creatinine Clearance > 125 ml/min; Glucose 148 mg/dl (70-99); Magnesium 1.7 mg/dl (1.6-2.3); Phosphorus 3.9 mg/dl (2.5-4.5); Potassium 3.6 mmol/L (3.5-5.1); Sodium 137 mmol/L (135-145); eGFR > 60.00
[2024-11-10 04:50] VITALS: BMI 34.4
[2024-11-10 07:44] LABS: Glucose - Point of Care 175 mg/dl (70-99)
[2024-11-10 07:52] VITALS: BP 112/75
--- NOTE | 2024-11-10 08:06 | PN.DE.MGMTRT ---
Insulin Management
- -
11/10/2024 Diabetes management Consult Follow up
Patient admitted 11/08 with DKA. H type 2 diabetes for 8 months. He was seen in the ED 10/07 for elevated glucose and was prescribed metformin. A1C on admission 10.8, cr .4, eGFR > 60. GAP 12.
Patient is awake alert and oriented able to discuss diabetes care. States he took metformin in the past but had significant GI upset; has a Reli-On glucose monitor and strips at home.
Transitioned from IV insulin to 6 units NPH then 70/30 15 units BID first dose with dinner 11/09. 3AM glucose 147. Fasting glucose 175.
Will continue 70/30 insulin 15 units BID.
Discussed with nurse. Nursing worked with patient with insulin pen use; documented patient did return demonstration and verbalized understanding. Patient states he is able to afford insulin, suggested [facility] as they have the best pricing.
Reviewed with patient each step of pen use and provided printed step by step instructions with pictures. Able to return demonstrate without difficulty. Reviewed importance of testing glucose before each meal and HS and administering insulin ~ 10
minutes before breakfast and dinner. Verbalized understanding.
Provided diabetes education booklet and reviewed hypoglycemia, glucose < 70, s/s and treatment; patient verbalized understanding. For ease of use suggested 4 ounce 15 gram juice boxes to have in his vehicle and by his bed. Verbalized understanding.
Patient will follow up with [facility]. Recommended he write down and take glucose readings to the appointment so insulin can be adjusted.
RX for insulin and pen needles in ambulatory orders.
Diabetes History
- -
Type of Diabetes: 2 requiring insulin
Pre-Admission Diabetes Regimen
11/09/24 11/10/24
09:43 03:04
Creatinine 0.4 L 0.4 L
Lab Results
Hemoglobin A1c 10.8 % (4.0-5.6) H 11/08/24 03:14
Insulin Pump Settings
IP Diabetes Regimen
11/09/24 11/09/24 11/09/24
08:51 09:03 09:43
Glucose 202 H
POC Glucose 210 H 184 H
11/09/24 11/09/24 11/09/24
09:44 10:54 11:47
Glucose
POC Glucose 211 H 183 H 200 H
11/09/24 11/09/24 11/09/24
12:49 14:02 14:50
Glucose
POC Glucose 217 H 192 H 203 H
11/09/24 11/09/24 11/10/24
16:50 21:32 03:03
Glucose
POC Glucose 184 H 162 H 147 H
11/10/24 11/10/24
03:04 07:33
Glucose 148 H
POC Glucose 175 H
Patient Education
[2024-11-10 09:15] LABS: Glucose - Point of Care 199 mg/dl (70-99)
[2024-11-10] MEDS: NOVOLOG FLEXPEN-LOW RESISTANCE 1 UNITS SC (09:18)
[2024-11-10] MEDS: NOVOLOG MIX 70/30 FLEXPEN 15 UNITS SC (09:19)
--- NOTE | 2024-11-10 12:19 | W.PN.HOSP.TC ---
Today's Communication/Plan
-
Discharge today
Assessment / Plan
Assessment / Plan
Physical Exam
General: No Apparent Distress
HEENT: Normocephalic
Respiratory: Clear to Auscultation Bilaterally
Cardiac: S1/S2 and Regular Rhythm
GI: Soft, Non Tender, Non Distended and Normal Bowel Sounds
Musculoskeletal: No Cyanosis and No Edema
Neuro: AAO x 3
Psych: Calm
Assessment/Plan
39-year-old male with a diagnosis of xdz-jtsurco-hgczvsqvv diabetes mellitus recently who comes in in DKA. This is secondary to not being on any medications for 3 weeks after being started on metformin with subsequent nausea, chest pain and
shortness of breath. He appeared moderately dehydrated and in moderate DKA. No signs of DKA triggered by infection or acute ischemia.
Diabetic Ketoacidosis
Diabetes diagnosis 8 months ago-not treated
- Admitted to ICU initially, now okay for discharge
- Received DKA protocol. Now anion gap closed.
- Appreciate Diabetes CENTER REP as patient needs significant Diabetes Education
-70/30 insulin 15 units BID
DVT Prophylaxis: Lovenox
Code Status: Full Code
More than 30 minutes spent in discharge including
Final examination of the patient
Summarizing hospital stay
Instructions for continuing care to all relevant caregivers
Preparation of discharge records, prescriptions, and referral forms
Total time spent (in minutes): 35
Anticipated Discharge: Today
Subjective/Interval History
-
Date of Service: November 10, 2024
Patient was seen and examined. He denied any symptoms or complaints.
Objective Data
-
Labs:
Laboratory Results
11/10/24
03:04
Sodium 137
Potassium 3.6
Chloride 107
Carbon Dioxide 20 L
BUN 8 L
Creatinine 0.4 L
Glucose 148 H
Calcium 8.5
Vital Signs:
Vital Signs
Temp Pulse Resp BP Pulse Ox
98.3 F 73 16 112/75 98
11/10/24 11:52 11/10/24 07:52 11/10/24 07:57 11/10/24 07:52 11/10/24 07:58
I&O
11/09/24 11/10/24 11/11/24
06:59 06:59 06:59
Intake Total 3975 / 4195.5 1773.5 / 1773.5
Output Total 950 / 950 1050 / 1050
Balance 3025 / 3245.5 723.5 / 723.5
--- NOTE | 2024-11-10 12:39 | W.DCSUMMARY ---
Discharge Summary
Discharge Data
Date of Admission: 11/08/24
Date of Discharge: 11/10/24
Total time spent discharging patient (in min): 35
-
Pending Results: No
Hospital Course
39 y/o male with past medical history of a recent diagnosis of diabetes mellitus who comes to the emergency department with elevated glucose, polyuria polydipsia nausea and vomiting. He was found to have Diabetic Ketoacidosis and started on Insulin
Drip, IV fluids. There were no signs of DKA triggered by infection or acute ischemia. Patient's labwork improved and he was soon tolerating a diet, and was stable for discharge. Diabetes Nurse Practitioner was consulted.
Discharge Plan
-
Patient Disposition: Home (Routine Discharge)
Discharge Diagnosis/Procedures: Diabetes ketoacidosis
Diabetes Mellitus diagnosis 8 months ago-not treated
Obesity BMI 34
Condition: Good
Diet: Low Fat, Low Cholesterol and Diabetic, Carb Controlled
Activity: As tolerated
Referrals:
NONE,* [Family Provider] -
Additional Discharge Medication Instructions: Novolin Insulin and Diabetes Supplies are new
Prescriptions:
New
Novolin 70-30 FlexPen U-100 100 unit/mL (70-30) Insulin Pen
15 unit SC BID@0800,1700 Qty: 5 1RF
(DME) pen needle, diabetic [Pen Needle] 32 gauge x 5/32' Needle
Qty: 100 1RF
Rx Instructions:
Use needle BID with Novolin 70/30 pen As Directed E11.65
Discharge Orders:
Discharge Patient (As Directed); Ordered 11/10/24
Ordered By: Jake Perry
Discharge Date and Time
Discharge Date/Time: 11/10/24 14:42
Print Language: GREEK
[2024-11-10 12:55] VITALS: BP 109/70
--- NOTE | 2024-11-10 12:56 | CM ---
CM following re: discharge planning.
Reviewed pt's chart, met with pt and pt's spouse at bedside.
Discharge order noted. Both pt and his spouse are aware. Pt reports he is undocumented immigrant from [place], lives with spouse, 2 children live in [place].
Pt is aware he will need to take insulin. Pt has no insurance and will not qualify for insurance due to immigrant status. Pt stated he will be able to afford to pay privately. CM advised the pt to go to [facility] pharmacy, they do have programs for
different medications including insulin.
Pt stated he heard about [facility], never been there. CM provided pt with an application to apply for services at [facility] in [place] and pt expressed his appreciation.
D/C plan: home with follow at [facility] and family support. Spouse to transport.
[2024-11-10 13:04] LABS: Glucose - Point of Care 155 mg/dl (70-99)
--- NOTE | 2024-11-10 13:09 | PTCARENOTE ---
Addendum entered by Sophy Abdalla RN 11/10/24 13:13:
pt given education packets in thai, verbalized understanding.
Addendum entered by Sophy Abdalla RN 11/10/24 13:11:
pt refusing lunch.
Original Note:
all discharge instructions and planning given to pt. records coordinator Manuela #[id number] utilized. pt able to teach back insulin pen instructions and all other instructions, verbalized understanding. pt spoke with Sondra Lubin NP from [facility].
scripts sent to pharmacy for pt. ivs removed, pressure dressings applied.
[2024-11-10] MEDS: NOVOLOG FLEXPEN-LOW RESISTANCE SC (13:11)
--- NOTE | 2024-11-10 13:27 | PTCARENOTE ---
pt refused flu vaccine despite education. walked down with rn.
== END 2024-11-10 14:42 | disposition home or self-care (01) | DRG 639 ==
LOC: ICU 01:36
PROVIDERS: Emergency Medicine; Internal Medicine; Nurse Practitioner Family; ADMITTING PHYSICIAN Internal Medicine; ATTENDING PHYSICIAN Hospitalist; EMERGENCY PHYSICIAN Emergency Medicine; OTHER PHYSICIAN Internal Medicine Critical Care Medicine
DX: E11.10 Type 2 diabetes mellitus with ketoacidosis without coma (principal); E86.0 Dehydration; E87.6 Hypokalemia; E66.9 Obesity, unspecified; Z68.34 Body mass index [BMI] 34.0-34.9, adult; Z91.148 Patient's other noncompliance with medication regimen for other reason
CPT/HCPCS: 71045; 80048; 80053; 82010; 82962; 83036; 83735; 84100; 85025; 85027; 85610; 85730; 93005; 96361; 96374; 99291